=== PATIENT | male | born 1960 | race Caucasian/White ===

== ENCOUNTER 2016-11-14 20:00 | Emergency (ER) | payer OTHER ==
[2016-11-14] MEDS ORDERED: FLUORESCEIN STRIP 1 MG/STRIP STRIP ONE (20:29)
[2016-11-14] MEDS ORDERED: GENTAMICIN 0.3% OPHTH OINTMENT 1 APPLIC APP ONE (20:37)
[2016-11-14] MEDS ORDERED: KETOROLAC 0.45% OPHTH 1 DROP/EACH DROPERETTE ONE (20:37)
[2016-11-14] MEDS ORDERED: predniSONE 10 MG TABLET PO ONE (20:37)
--- NOTE | 2016-11-14 20:41 | ER NURSING DOCUMENTATION ---
Nurse's Notes [facility] Name:Werner Sheth Age:56 yrs Sex:Male :1960 Arrival Date:11/14/2016 Time:20:00 Bed2 Private MD: Diagnosis:Conjunctivitis Presentation: 11/14 20:05 Presenting complaint: Patient states: Left eye pain. States was mowing the lawn 2 days mk4 ago when touched eye with glove and felt immediate burning. Redness increasing. Transition of care: Home. Onset: The symptoms/episode began/occurred gradually. Anaphylaxis evaluation, the patient reports or I have noted the following symptoms which indicate a significant risk of anaphylaxis: no signs or symptoms of anaphylaxis were noted. 20:05 Method Of Arrival: Walk In [facility] 20:05 Acuity: PIERRE 4 mk4 Triage Assessment: 20:26 General: Appears in no apparent distress, Behavior is cooperative. Pain: Complains of mk4 pain in left eye. EENT: Eyes are tearing on outer aspect of conjuctiva of left eye Reports blurred vision pain in left eye. Neuro: No deficits noted. Cardiovascular: Denies. Respiratory: Denies cough, shortness of breath. GI: No deficits noted. : No deficits noted. Derm: No deficits noted. Musculoskeletal: No deficits noted. Historical: - Allergies: No known drug Allergies; - Home Meds: 1. simvastatin 10 mg oral tab Unknown once daily - Tetanus: < 10 years. - Ebola Screening: : No symptoms or risks identified at this time. . - Immunization history: Flu Vaccine < 1 year. - Social history: Smoking status: Patient states was never smoker of tobacco. Assessment: 20:32 See Triage Assessment done by same RN. 4 Vital Signs: 20:27 BP 145 / 100; Pulse 88; Resp 17; Temp 98.4; Pulse Ox 92% ; Weight 70.31 kg; Height 5 mk4 ft. 8 in. (172.72 cm); Pain 6/10; 20:27 Body Mass Index 23.57 (70.31 kg, 172.72 cm) mk4 Visual Acuity: 20:06 Left Eye Visual acuity 20/40, ; Right Eye Visual acuity 20/40, ; Both Eyes Visual jt acuity 20/30; With Lenses; ED Course: 20:02 Patient arrived in ED. em3 20:03 Grupo Heard MD is Attending Physician. wv 20:22 Anne Marie Chacon is Primary Nurse. 4 20:26 Triage completed. 4 20:29 Bed in low position Call Light in Reach. Family accompanied patient. mk4 Administered Medications: 20:29 Drug: ketorolac (PF) Dropperette 0.45 % 1 drops; Route: Ophthalmic; Site: right eye; sc 20:38 Follow up: Response: No adverse reaction mk2 20:29 Drug: ketorolac (PF) Dropperette 0.45 % 2 drops; Route: Ophthalmic; Site: left eye; sc 20:38 Follow up: Response: No adverse reaction mk2 20:29 Drug: Gentamicin Ointment 0.3 % 0.5 inches; Route: Ophthalmic; Site: both eyes; sc 20:39 Follow up: Response: No adverse reaction mk2 20:30 Drug: predniSONE 30 mg; Route: PO; sc 20:38 Follow up: Response: No adverse reaction 2 Outcome: 20:27 Discharge ordered by . wv 20:37 Discharged to home ambulatory. 2 20:37 Condition: stable 20:37 Discharge instructions given to patient, Instructed on discharge instructions, follow up and referral plans. medication usage, Prescriptions given X 1. 20:39 Patient left the ED. 2 11/15 17:07 Discharge F/U Call: Unable to reach: left voicemail: Signatures: Grupo Heard MD MD sc Kruger, Alee, RN RN mk2 Marcos Collazo 3 Anne Marie Chacon mk4 Natalya Lagos Sarah sj
--- NOTE | 2016-11-14 20:45 | ER PHYSICIAN DOCUMENTATION ---
Physician Documentation [facility] Name:Werner Sheth Age:56 yrs Sex:Male :1960 Arrival Date:11/14/2016 Time:20:00 Bed2 Private MD: Grupo Lomeli Disposition: 11/14/16 20:27 Discharged to Home/Self Care. Impression: Conjunctivitis. - Condition is Good. - Discharge Instructions: Conjunctivitides - CONJUNCTIVITIS, Non-Specific. - Prescriptions for Prednisone 20 mg Oral - take 2 tablet by ORAL route once daily for 3 days; 6 tablet. - Medical Reconciliation form form. - Follow up: Private Physician; When: 2 - 3 days; Reason: Worsening of condition. - Problem is new. - Symptoms have improved. HPI: 11/14 20:31 This 56 yrs old Male presents to ER via Walk In with complaints of Rash. sc 20:31 The patient presents with a rash that is though to be caused by Dermatitis burning sc sensation after rubbing eyes/face with glove while mowing. The rash is located on the right eye and outer aspect of conjuctiva of left eye and left eye. Onset: The symptom(s)/episode began/occurred 3 day(s) ago. Associated signs and symptoms: Pertinent positives: tearing, matting, . Historical: - Allergies: No known drug Allergies; - Home Meds: 1. simvastatin 10 mg oral tab Unknown once daily - Tetanus: < 10 years. - Ebola Screening: : No symptoms or risks identified at this time. . - Immunization history: Flu Vaccine < 1 year. - Social history: Smoking status: Patient states was never smoker of tobacco. ROS: 20:33 Constitutional: Negative for fever, chills, and weight loss. sc Neck: Negative for injury, pain, and swelling. Back: Negative for injury and pain. 20:33 Neuro: Negative for headache, weakness, numbness, tingling, and seizure. sc 20:33 Eyes: Positive for itching, redness, tearing. 20:33 Skin: Positive for rash. Exam: Constitutional: This is a well developed, well nourished patient who is awake, alert, and in no acute distress. Head/Face: Normocephalic, atraumatic. 20:34 ENT: Nares patent. No nasal discharge, no septal abnormalities noted. Tympanic sc membranes are normal and external auditory canals are clear. Oropharynx with no redness, swelling, or masses, exudates, or evidence of obstruction, uvula midline. Mucous membranes moist. 20:34 Eyes: Pupils: equal, round, and reactive to light and accomodation, Extraocular movements: intact throughout, Conjunctiva: injected, Corneas: are normal. 20:34 Skin: erythema. Vital Signs: 20:27 BP 145 / 100; Pulse 88; Resp 17; Temp 98.4; Pulse Ox 92% ; Weight 70.31 kg; Height 5 mk4 ft. 8 in. (172.72 cm); Pain 6/10; 20:27 Body Mass Index 23.57 (70.31 kg, 172.72 cm) mk4 Visual Acuity: 20:06 Left Eye Visual acuity 20/40, ; Right Eye Visual acuity 20/40, ; Both Eyes Visual jt acuity 20/30; With Lenses; MDM: 20:03 Patient medically screened. sc 20:34 Differential diagnosis: dermatitis. Data reviewed: vital signs, nurses notes, and as a sc result, I will discharge patient. Dispensed Medications: 20:29 Drug: ketorolac (PF) Dropperette 0.45 % 1 drops; Route: Ophthalmic; Site: right eye; sc 20:38 Follow up: Response: No adverse reaction mk2 20:29 Drug: ketorolac (PF) Dropperette 0.45 % 2 drops; Route: Ophthalmic; Site: left eye; sc 20:38 Follow up: Response: No adverse reaction mk2 20:29 Drug: Gentamicin Ointment 0.3 % 0.5 inches; Route: Ophthalmic; Site: both eyes; sc 20:39 Follow up: Response: No adverse reaction mk2 20:30 Drug: predniSONE 30 mg; Route: PO; sc 20:38 Follow up: Response: No adverse reaction mk2 Signatures: Grupo Heard MD MD sc Kruger, Meg RN RN mk2 Anne Marie Chacon mk4
== END 2016-11-14 20:39 | disposition home or self-care (01) ==
LOC: ER 20:00
DX: H10.12 Acute atopic conjunctivitis, left eye (principal); R21 Rash and other nonspecific skin eruption
CPT/HCPCS: 99283; J7512